=== PATIENT | male | born 1945 | race Hispanic/Latino ===

== ENCOUNTER 2022-10-23 10:57 | Emergency (ER) | payer OTHER ==
--- NOTE | 2022-10-23 11:50 | RAD REPORT ---
EXAM DESCRIPTION: RAD - Chest Single View - 10/23/2022 11:43 am CLINICAL HISTORY: Cough;COPD Chest pain. COMPARISON: No comparisons FINDINGS: Portable technique limits examination quality. Emphysema is seen with hazy opacities in the left lung base, moderate in size. Small left pleural eff usion. The heart is normal in size. No displaced fractures.Aortic atherosclerosis. IMPRESSION: Moderate left lung base infiltrate/pneumonia pattern.
--- NOTE | 2022-10-23 11:52 | ER ---
Nurse's Notes [facility] Name: Luis Kwon Age: 76 yrs Sex: Male : 1945 Arrival Date: 10/23/2022 Time: 10:57 Bed 2 Private MD: Diagnosis: Influenza due to other identified influenza virus with other respiratory manifestations-FLU B;COPD/ Chronic obstructive pulmonary disease with (acute) exacerbation;Hypoxemia;Pneumonia due to other specified bacteria-LEFT BASE;Anemia, unspecified;UTI/ Urinary tract infection, site not specified Presentation: 10/23 11:05 Chief complaint: EMS states: Pt was recently discharged from [facility] for [facility] and was vg1 toned out for SOB/difficulty breathing, "sating at high 80's" placed pt on Nonrebreather. Pt also had a recent ronda infection and currently has a suprapubic catheter. Coronavirus screen: Vaccine status: Patient reports receiving the 2nd dose of the covid vaccine. Client denies travel out of the [place] in the last 14 days. Ebola Screen: Patient negative for fever greater than or equal to 101.5 degrees Fahrenheit, and additional compatible Ebola Virus Disease symptoms Patient denies exposure to infectious person. Patient denies travel to an Ebola-affected area in the 21 days before illness onset. Initial Sepsis Screen: Does the patient meet any 2 criteria? RR > 20 per min. Does the patient have a suspected source of infection?. Risk Assessment: Do you want to hurt yourself or someone else? Patient reports no desire to harm self or others. Onset of symptoms was October 23, 2022. 11:05 Method Of Arrival: EMS: [facility] vg1 11:05 Acuity: JEREMY 2 vg1 11:05 Care prior to arrival: Glucose check: 190 Oxygen administered. via a non-rebreather vg1 mask. Triage Assessment: 11:09 General: Appears in no apparent distress. uncomfortable, Behavior is calm, cooperative. vg1 Pain: Denies pain. EENT: No signs and/or symptoms were reported regarding the EENT system. Neuro: Level of Consciousness is awake, alert, obeys commands, Oriented to person, place, time, situation. Cardiovascular: Patient's skin is warm and dry. Respiratory: Reports shortness of breath at rest on exertion cough that is non-productive, Breath sounds are diminished bilaterally. Onset: The symptoms/episode began/occurred , the patient has moderate shortness of breath. GI: No signs and/or symptoms were reported involving the gastrointestinal system. : suprapubic catheter in place Urine is blood tinged. Derm: Skin is pink, warm \\T\\ dry. Musculoskeletal: Circulation, motion, and sensation intact. Historical: - Allergies: 11:09 No Known Allergies; vg1 - Home Meds: 13:37 Wixela Inhub inhalation [Active]; Fluconazole Oral [Active]; Lisinopril Oral [Active]; vg1 Amiodarone Oral [Active]; atorvastatin oral [Active]; levothyroxine oral [Active]; Omeprazole Oral [Active]; Vitamin D Oral [Active]; acetaminophen 325 mg Oral capsule [Active]; Levofloxacin Oral [Active]; Metoprolol Tartrate Oral [Active]; apixaban 5 mg oral tablet [Active]; - PMHx: 11:09 Congestive heart failure; Hypertensive disorder; Prostate Cancer; vg1 13:41 Chronic obstructive lung disease; vg1 - Immunization history:: Client reports receiving the 2nd dose of the Covid vaccine. - Social history:: Smoking status: Patient denies any tobacco usage or history of. Screenin:[address] [facility] ED Fall Risk Assessment (Adult) History of falling in the last 3 months, vg1 including since admission No falls in past 3 months (0 pts). Abuse screen: Denies threats or abuse. Denies injuries from another. Nutritional screening: No deficits noted. Tuberculosis screening: No symptoms or risk factors identified. Assessment: 11:11 Reassessment: SEE TRIAGE. vg1 11:12 Respiratory: Airway is patent Respiratory effort is labored, pursed lip. vg1 13:42 Reassessment: Patient appears in no apparent distress at this time. Patient and/or vg1 family updated on plan of care and expected duration. Pain level reassessed. Patient is alert, oriented x 3, equal unlabored respirations, skin warm/dry/pink. Patient states feeling better. 14:48 Reassessment: Patient appears in no apparent distress at this time. No changes from vg1 previously documented assessment. Patient and/or family updated on plan of care and expected duration. Pain level reassessed. Patient is alert, oriented x 3, equal unlabored respirations, skin warm/dry/pink. 15:30 Reassessment: Patient appears in no apparent distress at this time. Patient and/or vg1 family updated on plan of care and expected duration. Pain level reassessed. Patient is alert, oriented x 3, equal unlabored respirations, skin warm/dry/pink. 16:38 Reassessment: Patient appears in no apparent distress at this time. No changes from vg1 previously documented assessment. Patient and/or family updated on plan of care and expected duration. Pain level reassessed. Patient is alert, oriented x 3, equal unlabored respirations, skin warm/dry/pink. 16:58 Reassessment: Report given to IVETH RENEE at the [facility]. vg1 17:22 Reassessment: Report given to [facility]. vg1 Vital Signs: 11:05 BP 178 / 86; Pulse 86; Resp 26; Temp 98.6(O); Pulse Ox 100% on Non-rebreather mask; vg1 Weight 66.22 kg; Height 5 ft. 6 in. ; Pain 0/10; 11:11 BP 149 / 83; Pulse 60; Resp 20; Pulse Ox 92% on 4 lpm NC; vg1 12:00 BP 154 / 74; Pulse 60; Resp 15; Pulse Ox 100% on Non-rebreather mask; vg1 13:00 BP 138 / 73; Pulse 53; Resp 15; Pulse Ox 100% on Non-rebreather mask; vg1 13:30 BP 148 / 72; Pulse 68; Resp 16; Pulse Ox 92% on 4 lpm NC; vg1 14:30 BP 134 / 66; Pulse 67; Resp 22; Pulse Ox 93% on 4 lpm NC; vg1 15:30 BP 138 / 76; Pulse 62; Resp 22; Pulse Ox 90% on 4 lpm NC; vg1 16:38 BP 141 / 80; Pulse 60; Resp 16; Pulse Ox 100% on Nebulizer Mask; vg1 11:05 Body Mass Index 23.56 (66.22 kg, 167.64 cm) vg1 11:05 Pain Scale: Adult vg1 ED Course: 11:01 Patient arrived in ED. ph 11:05 Antonia Hernandez, IVETH is Primary Nurse. vg1 11:09 Triage completed. vg1 11:09 Olivier Ojeda MD is Attending Physician. [facility] 11:09 Arm band placed on. vg1 11:12 Patient has correct armband on for positive identification. Placed in gown. Bed in low vg1 position. Call light in reach. Side rails up X2. Client placed on continuous cardiac and pulse oximetry monitoring. NIBP monitoring applied. 11:44 XRAY Chest (1 view) In Process Unspecified. EDMS 11:45 Initial lab(s) drawn, by me, sent to lab. First set of blood cultures drawn by me, Flu mm9 and/or RSV swab sent to lab. Strep swab sent to lab. Inserted saline lock: 20 gauge in right antecubital area, using aseptic technique. 11:51 Lactate w/ 2H reflex if indic. Sent. mm9 11:51 COVID-19 SARS RT PCR Sent. mm9 11:51 Basic Metabolic Panel Sent. mm9 11:51 CBC with Diff Sent. mm9 11:51 LFT's Sent. mm9 11:51 Magnesium Sent. mm9 11:51 NT PRO-BNP Sent. mm9 11:52 PT-INR Sent. mm9 11:52 Troponin HS Sent. mm9 11:53 Warm blanket given. Pillow given. logistics coordinator on. Pulse ox on. NIBP on. mm9 12:15 Blood Culture Adult (2) Sent. mm9 12:20 attempted to initiate a transfer with the [facility] transfer center/ the coordinator is austin currently busy with another transfer and will have to call me back/. 13:00 initiated a transfer with the [facility] transfer center at the request of the patient. austin 16:[address] Esqueda the Emergency room doctor on at the [facility] with Dr. Ojeda for eb patient transfer consultation. 16:14 administrative approval given by Ramonita Garsia/ patient has been accepted to [facility] ER/ Dr. austin Esqueda has accepted the patient in transfer/ report to be called to [phone]. 17:00 Provided Education on: Transfer Consent. jl7 Administered Medications: 12:09 Drug: NS 0.9% IV 1000 ml Route: IV; Rate: 125 ml/hr; Site: right antecubital; vg1 17:56 Follow up: IV Status: Infusion continued upon transfer vg1 12:18 Drug: predniSONE PO 40 mg Route: PO; vg1 13:49 Follow up: Response: No adverse reaction jl7 14:06 Follow up: Response: No adverse reaction; Marked relief of symptoms vg1 12:18 Drug: Oseltamivir PO 75 mg Route: PO; vg1 13:49 Follow up: Response: No adverse reaction jl7 14:06 Follow up: Response: No adverse reaction vg1 12:19 Drug: MethylPrednisoLONE IVP 125 mg Route: IVP; Site: right antecubital; vg1 13:49 Follow up: Response: No adverse reaction jl7 12:22 Drug: Famotidine IVP 20 mg Route: IVP; Site: right antecubital; vg1 13:49 Follow up: Response: No adverse reaction jl7 14:06 Follow up: Response: No adverse reaction; Marked relief of symptoms vg1 12:27 Drug: Levalbuterol Inhalation 3.75 mg Route: Inhalation; vg1 14:06 Follow up: Response: No adverse reaction; Marked relief of symptoms vg1 12:27 Drug: Ipratropium Inhalation Aerosol 0.5 mg Route: Inhalation; vg1 14:06 Follow up: Response: No adverse reaction; Marked relief of symptoms vg1 13:45 Drug: Rocephin IV 1 grams Route: IV; Rate: per protocol; Site: right antecubital; vg1 14:06 Follow up: IV Status: Completed infusion vg1 13:49 Drug: Levalbuterol Inhalation 2.5 mg Route: Inhalation; jl7 16:37 Follow up: Response: No adverse reaction; No change in condition vg1 14:05 Drug: Zithromax IVPB 500 mg Route: IVPB; Infused Over: 1 hrs; Site: right antecubital; vg1 15:09 Follow up: Response: No adverse reaction; IV Status: Completed infusion ph 16:30 Drug: Levalbuterol Inhalation 1.25 mg Route: Inhalation; vg1 16:32 Drug: levofloxacin IVPB 500 mg Volume: 100 ml; Route: IVPB; Infused Over: 60 mins; vg1 Site: right antecubital; 17:55 Follow up: IV Status: Infusion continued upon admission vg1 Medication: 11:12 VIS not applicable for this client. vg1 Outcome: 11:51 ER care complete, transfer ordered by MD. conteh 17:45 Patient left the ED. ph Signatures: Dispatcher [employer] EDOlivier Pope MD MD cha Hall, Patricia RN RN ph Galo Corey RN RN jl7 Gale Rivera Victoria RN RN vg1 Carey Zuleta mm9 Corrections: (The following items were deleted from the chart) 11:09 PMHx: Diabetes mellitus; vg1 vg1
--- NOTE | 2022-10-23 11:52 | EDPHYS ---
Physician Documentation [facility] Name: Luis Kwon Age: 76 yrs Sex: Male : 1945 Arrival Date: 10/23/2022 Time: 10:57 Bed 2 Private MD: ED Physician Olivier Ojeda HPI: 10/23 11:32 This 76 yrs old Male presents to ER via EMS with complaints of Shortness Of yady Breath. 11:32 The patient has shortness of breath at rest, with light activity. Onset: The yady symptoms/episode began/occurred 2 day(s) ago. Duration: The symptoms are continuous, and are steadily getting worse. The patient's shortness of breath is aggravated by coughing, supine position. The patient's shortness of breath has no apparent modifying factors. Associated signs and symptoms: Pertinent positives: non-productive cough. Severity of symptoms: At their worst the symptoms were moderate in the emergency department the symptoms are unchanged. The patient has experienced similar episodes in the past, multiple times. Historical: - Allergies: 11:09 No Known Allergies; vg1 - Home Meds: 13:37 Wixela Inhub inhalation [Active]; Fluconazole Oral [Active]; Lisinopril Oral [Active]; vg1 Amiodarone Oral [Active]; atorvastatin oral [Active]; levothyroxine oral [Active]; Omeprazole Oral [Active]; Vitamin D Oral [Active]; acetaminophen 325 mg Oral capsule [Active]; Levofloxacin Oral [Active]; Metoprolol Tartrate Oral [Active]; apixaban 5 mg oral tablet [Active]; - PMHx: 11:09 Congestive heart failure; Hypertensive disorder; Prostate Cancer; vg1 13:41 Chronic obstructive lung disease; vg1 - Immunization history:: Client reports receiving the 2nd dose of the Covid vaccine. - Social history:: Smoking status: Patient denies any tobacco usage or history of. ROS: 11:43 Constitutional: Negative for fever, chills, and weight loss, Eyes: Negative for injury, yady pain, redness, and discharge, ENT: Negative for injury, pain, and discharge, Neck: Negative for injury, pain, and swelling, Cardiovascular: Negative for chest pain, palpitations, and edema, Abdomen/GI: Negative for abdominal pain, nausea, vomiting, diarrhea, and constipation, Back: Negative for injury and pain, : Negative for injury, bleeding, discharge, and swelling, MS/Extremity: Negative for injury and deformity, Skin: Negative for injury, rash, and discoloration, Neuro: Negative for headache, weakness, numbness, tingling, and seizure, Psych: Negative for depression, anxiety, suicide ideation, homicidal ideation, and hallucinations, Allergy/Immunology: Negative for hives, rash, and allergies, Endocrine: Negative for neck swelling, polydipsia, polyuria, polyphagia, and marked weight changes, Hematologic/Lymphatic: Negative for swollen nodes, abnormal bleeding, and unusual bruising. 11:43 Respiratory: Positive for cough, shortness of breath, wheezing, inspiratory, expiratory. Exam: 11:43 Constitutional: This is a well developed, well nourished patient who is awake, alert, yady and in no acute distress. Head/Face: Normocephalic, atraumatic. Eyes: Pupils equal round and reactive to light, extra-ocular motions intact. Lids and lashes normal. Conjunctiva and sclera are non-icteric and not injected. Cornea within normal limits. Periorbital areas with no swelling, redness, or edema. ENT: Nares patent. No nasal discharge, no septal abnormalities noted. Tympanic membranes are normal and external auditory canals are clear. Oropharynx with no redness, swelling, or masses, exudates, or evidence of obstruction, uvula midline. Mucous membranes moist. Neck: Trachea midline, no thyromegaly or masses palpated, and no cervical lymphadenopathy. Supple, full range of motion without nuchal rigidity, or vertebral point tenderness. No Meningismus. Chest/axilla: Normal chest wall appearance and motion. Nontender with no deformity. No lesions are appreciated. Cardiovascular: Regular rate and rhythm with a normal S1 and S2. No gallops, murmurs, or rubs. Normal PMI, no JVD. No pulse deficits. Abdomen/GI: Soft, non-tender, with normal bowel sounds. No distension or tympany. No guarding or rebound. No evidence of tenderness throughout. Back: No spinal tenderness. No costovertebral tenderness. Full range of motion. Male : Normal genitalia with no discharge or lesions. Skin: Warm, dry with normal turgor. Normal color with no rashes, no lesions, and no evidence of cellulitis. MS/ Extremity: Pulses equal, no cyanosis. Neurovascular intact. Full, normal range of motion. Neuro: Awake and alert, GCS 15, oriented to person, place, time, and situation. Cranial nerves II-XII grossly intact. Motor strength 5/5 in all extremities. Sensory grossly intact. Cerebellar exam normal. Normal gait. Psych: Awake, alert, with orientation to person, place and time. Behavior, mood, and affect are within normal limits. 11:43 Respiratory: mild respiratory distress is noted, moderate respiratory distress is noted, Respirations: labored breathing, that is mild, Breath sounds: decreased breath sounds, that are mild, rhonchi, that are mild, stridor, is not appreciated, + upper airway congestion. Respiratory rate: 22 11:43 Musculoskeletal/extremity: DVT Exam: No signs of deep vein thrombosis. no pain, no swelling, no tenderness, negative Homans' sign noted on exam, no appreciated bluish discoloration, no erythema, no increased warmth. 12:45 ECG was reviewed by the Attending Physician. yady Vital Signs: 11:05 BP 178 / 86; Pulse 86; Resp 26; Temp 98.6(O); Pulse Ox 100% on Non-rebreather mask; vg1 Weight 66.22 kg; Height 5 ft. 6 in. ; Pain 0/10; 11:11 BP 149 / 83; Pulse 60; Resp 20; Pulse Ox 92% on 4 lpm NC; vg1 12:00 BP 154 / 74; Pulse 60; Resp 15; Pulse Ox 100% on Non-rebreather mask; vg1 13:00 BP 138 / 73; Pulse 53; Resp 15; Pulse Ox 100% on Non-rebreather mask; vg1 13:30 BP 148 / 72; Pulse 68; Resp 16; Pulse Ox 92% on 4 lpm NC; vg1 14:30 BP 134 / 66; Pulse 67; Resp 22; Pulse Ox 93% on 4 lpm NC; vg1 15:30 BP 138 / 76; Pulse 62; Resp 22; Pulse Ox 90% on 4 lpm NC; vg1 16:38 BP 141 / 80; Pulse 60; Resp 16; Pulse Ox 100% on Nebulizer Mask; vg1 11:05 Body Mass Index 23.56 (66.22 kg, 167.64 cm) 1 11:05 Pain Scale: Adult vg1 MDM: 11:10 Patient medically screened. [facility] 11:44 Differential diagnosis: Anemia asthma, Bronchitis CHF exacerbation, Chronic Obstructive yady Pulmonary Disease obstructed airway, tracheal injury, bronchitis, flu, pneumonia, Pneumothorax pulmonary edema, Pulmonary Embolism reactive airway disease, Sepsis Unstable Angina. Antibiotic administration: Rocephin and Zithromax given. Immunization status: Pneumococcal vaccine: within last 5 years. Influenza vaccine: within last 5 years. Data reviewed: vital signs, nurses notes, EMS record, lab test result(s), EKG, radiologic studies, plain films. Consideration of Admission/Observation Escalation of care including admission/observation considered. I considered the following discharge prescriptions or medication management in the emergency department Medications were administered in the Emergency Department. See MAR. Test considered but Not performed: CT: CT CHEST RO PE. Historians other than the Patient: Spouse/Significant Other: . Care significantly affected by the following chronic conditions: Hypertension, Congestive Heart Failure, Cancer. Counseling: I had a detailed discussion with the patient and/or guardian regarding: the historical points, exam findings, and any diagnostic results supporting the discharge/admit diagnosis, the presence of at least one elevated blood pressure reading (>120/80) during this emergency department visit, lab results, radiology results, the need to transfer to another facility, for higher level of care, [facility] does not immediately have the required specialist, [place] PATIENT. 10/23 11:15 Order name: Basic Metabolic Panel; Complete Time: 13:04 [facility] 10/23 11:15 Order name: CBC with Diff; Complete Time: 13:04 [facility] 10/23 11:15 Order name: LFT's; Complete Time: 13:04 10/23 11:15 Order name: Magnesium; Complete Time: 13:04 10/23 11:15 Order name: NT PRO-BNP; Complete Time: 13:04 yady 10/23 11:15 Order name: PT-INR; Complete Time: 13:04 10/23 11:15 Order name: Troponin HS; Complete Time: 13:04 [facility] 10/23 11:15 Order name: Blood Culture Adult (2) [facility] 10/23 11:15 Order name: Flu; Complete Time: 13:04 [facility] 10/23 11:15 Order name: COVID-19 SARS RT PCR; Complete Time: 13:04 [facility] 10/23 11:15 Order name: Lactate w/ 2H reflex if indic.; Complete Time: 13:04 [facility] 10/23 11:15 Order name: Urinalysis w/ reflexes; Complete Time: 16:13 [facility] 10/23 11:20 Order name: ABG; Complete Time: 13:04 [facility] 10/23 13:24 Order name: Urine Culture EDPR 10/23 11:15 Order name: XRAY Chest (1 view); Complete Time: 13:04 [facility] 10/23 11:15 Order name: EKG; Complete Time: 11:16 [facility] 10/23 11:15 Order name: Cardiac monitoring; Complete Time: 11:51 [facility] 10/23 11:15 Order name: EKG - Nurse/Tech; Complete Time: 12:43 [facility] 10/23 11:15 Order name: IV Saline Lock; Complete Time: 11:51 [facility] 10/23 11:15 Order name: Labs collected and sent; Complete Time: 11:51 [facility] 10/23 11:15 Order name: O2 Per Protocol; Complete Time: 11:42 [facility] 10/23 11:15 Order name: O2 Sat Monitoring; Complete Time: 11:42 [facility] EC:45 Rate is 55 beats/min. Rhythm is regular. QRS [place] is Normal. [place] interval is normal. QRS yady interval is normal. QT interval is normal. No Q waves. T waves are Normal. No ST changes noted. Clinical impression: Sinus bradycardia and No evidence of ischemia. Interpreted by me. Reviewed by me. Administered Medications: 12:09 Drug: NS 0.9% IV 1000 ml Route: IV; Rate: 125 ml/hr; Site: right antecubital; 1 17:56 Follow up: IV Status: Infusion continued upon transfer vg1 12:18 Drug: predniSONE PO 40 mg Route: PO; vg1 13:49 Follow up: Response: No adverse reaction jl7 14:06 Follow up: Response: No adverse reaction; Marked relief of symptoms vg1 12:18 Drug: Oseltamivir PO 75 mg Route: PO; vg1 13:49 Follow up: Response: No adverse reaction jl7 14:06 Follow up: Response: No adverse reaction vg1 12:19 Drug: MethylPrednisoLONE IVP 125 mg Route: IVP; Site: right antecubital; vg1 13:49 Follow up: Response: No adverse reaction jl7 12:22 Drug: Famotidine IVP 20 mg Route: IVP; Site: right antecubital; vg1 13:49 Follow up: Response: No adverse reaction jl7 14:06 Follow up: Response: No adverse reaction; Marked relief of symptoms vg1 12:27 Drug: Levalbuterol Inhalation 3.75 mg Route: Inhalation; vg1 14:06 Follow up: Response: No adverse reaction; Marked relief of symptoms vg1 12:27 Drug: Ipratropium Inhalation Aerosol 0.5 mg Route: Inhalation; vg1 14:06 Follow up: Response: No adverse reaction; Marked relief of symptoms vg1 13:45 Drug: Rocephin IV 1 grams Route: IV; Rate: per protocol; Site: right antecubital; vg1 14:06 Follow up: IV Status: Completed infusion vg1 13:49 Drug: Levalbuterol Inhalation 2.5 mg Route: Inhalation; jl7 16:37 Follow up: Response: No adverse reaction; No change in condition vg1 14:05 Drug: Zithromax IVPB 500 mg Route: IVPB; Infused Over: 1 hrs; Site: right antecubital; vg1 15:09 Follow up: Response: No adverse reaction; IV Status: Completed infusion ph 16:30 Drug: Levalbuterol Inhalation 1.25 mg Route: Inhalation; vg1 16:32 Drug: levofloxacin IVPB 500 mg Volume: 100 ml; Route: IVPB; Infused Over: 60 mins; vg1 Site: right antecubital; 17:55 Follow up: IV Status: Infusion continued upon admission vg1 Disposition Summary: 10/23/22 11:51 Transfer Ordered Transfer [facility] yady Reason: Higher level of care yady Condition: Fair yady Problem: new yady Symptoms: have improved yady Accepting Physician: TO [place](10/23/22 17:45) ph Diagnosis - Influenza due to other identified influenza virus with other respiratory yady manifestations - FLU B - COPD/ Chronic obstructive pulmonary disease with (acute) exacerbation yady - Hypoxemia yady - Pneumonia due to other specified bacteria - LEFT BASE yady - Anemia, unspecified yady - UTI/ Urinary tract infection, site not specified yady Forms: - Medication Reconciliation Form yady - SBAR form yady Signatures: Dispatcher [employer] Olivier Wynn MD MD cha Hall, Patricia, RN RN ph Leal, Jahala, RN RN jl7 Antonia Hernandez RN RN vg1 Corrections: (The following items were deleted from the chart) 11: 11:09 PMHx: Diabetes mellitus; vg1 vg1 13:05 11:51 [facility]ady 13:06 13:05 [facility] y[facility] yady 16:34 13:06 [facility] y[facility] yady 17:45 16:34 [facility] y[facility] ph
[2022-10-23 12:00] LABS: Hematocrit 33.7 % (39.6-49.0); MCV 87.2 fL (80-100); MPV 8.7 fL (7.6-11.3); RBC Red Blood Cell Count 3.87 M/uL (4.33-5.43)
[2022-10-23 12:05] LABS: Protime INR 1.64
[2022-10-23] MEDS ORDERED: predniSONE 20 MG TAB ONE ×2 (12:11→12:41)
[2022-10-23] MEDS ORDERED: METHYLPREDNISOLONE 125 MG INJ ONE (12:11)
[2022-10-23] MEDS ORDERED: OSELTAMIVIR 75 MG CAP PO ONE (12:11)
[2022-10-23 12:12] LABS: Arterial Blood Carboxyhemoglob 1.8 % (0-1.5); Blood Gas Oxyhemoglobin 95.5 % (94-97); Blood O2 Saturation 98.4 % (92-98.5)
[2022-10-23] MEDS ORDERED: CEFTRIAXONE 1000 MG/VIAL ONE (12:12)
[2022-10-23] MEDS ORDERED: AZITHROMYCIN 500 MG INJ IVPB ONE (12:12)
[2022-10-23] MEDS ORDERED: IPRATROPIUM BROM 0.5MG/2.5ML ONE (12:12)
[2022-10-23] MEDS ORDERED: LEVALBUTEROL 1.25 MG/3 ML NEB ONE ×3 (12:12→16:33)
[2022-10-23] MEDS ORDERED: NA CHLORIDE 0.9% 250 ML ONE (12:12)
[2022-10-23] MEDS ORDERED: NA CHLORIDE 0.9% 1,000 ML ONE (12:13)
[2022-10-23] MEDS ORDERED: FAMOTIDINE 20 MG/2 ML VIAL IV ONE (12:13)
[2022-10-23 12:20] LABS: Albumin 2.5 g/dL (3.4-5.0); Bilirubin Direct 0.1 mg/dL (0-0.2); Bilirubin Indirect, Calculated 0.3 mg/dL (0.2-0.8); Bilirubin Total 0.4 mg/dL (0.2-1.0); Magnesium 2.1 mg/dL (1.6-2.4); Potassium 4.2 mEq/L (3.5-5.1); Protein, Total 6.5 g/dL (6.4-8.2); Troponin High Sensitivity 9.2 pg/mL (<58.9)
[2022-10-23 13:21] LABS: Calcium Oxalate Crystals- Ur Few /HPF (None Seen); Specific Gravity 1.017 (1.005-1.030); Urine Bacteria <20 /HPF (<20); Urine Bilirubin NEGATIVE (Negative); Urine Blood 3+ (OVER) (Negative); Urine Clarity Extremely Turbid (Clear); Urine Color Light-Orange (Yellow); Urine Glucose NEGATIVE (Negative); Urine Mucus Slight /HPF (None Seen); Urine Protein 1+ (Negative); Urine RBC >50 /HPF (None Seen); Urine Urobilinogen Normal (Normal)
[2022-10-23] MEDS ORDERED: Levofloxacin500mg IV 500 MG/100 ML BAG IV ONE (16:33)
[2022-10-23 18:13] VITALS: TEMP 98.6
[2022-10-23 18:26] VITALS: BP 141/80; O2SAT 100
--- NOTE | 2022-10-25 11:48 | EKG ---
Test Date: 2022-10-23 Test Time: 12:40:29 Manager Contract: TONY MEASUREMENT RESULTS: Intervals: Rate: 55 [place]: 170 QRSD: 98 QT: 486 QTc: 464 Leonore: P: 53 [place]: 170 QRS: 92 T: 60 INTERPRETIVE STATEMENTS: Sinus bradycardia Otherwise normal ECG No previous ECG available for comparison Electronically Signed On 10-25-22 11:45:25 CDT by Johnny Lomas
== END 2022-10-23 17:45 ==
LOC: ER 10:57
DX: J10.1 Influenza due to other identified influenza virus with other respiratory manifestations (principal); J15.8 Pneumonia due to other specified bacteria; R09.02 Hypoxemia; J44.1 Chronic obstructive pulmonary disease with (acute) exacerbation; D64.9 Anemia, unspecified; N39.0 Urinary tract infection, site not specified; I50.9 Heart failure, unspecified; I10 Essential (primary) hypertension; Z20.822 Contact with and (suspected) exposure to COVID-19
CPT/HCPCS: 96365; 96367; 96361; 93005; 87040 ×2; 87088; 85025; 81001; 87086; 80048; 36415; 83735; 85610; 80076; 83605; 84484; 83880; 87635; 87804 ×2; 71045; 82805; 96375; 99285; 36600; J7512 ×2; J7614 ×3; J7644; J2930; J7050; J7030; J0696

== ENCOUNTER 2022-12-13 20:45 | Emergency (ER) | payer OTHER ==
--- NOTE | 2022-12-13 21:33 | RAD REPORT ---
EXAM DESCRIPTION: RAD - Chest Single View - 12/13/2022 9:25 pm CLINICAL HISTORY: SOB COMPARISON: <Comparisons> FINDINGS: Lines: None. Lungs: Similar mild basilar airspace disease compared with 10/23/2022. Pleural: No significant pleural effusions or pneumothorax. Cardiac: The heart size is within normal limits. Mediastinum: Within normal limits. Bones: No acute fractures. Other: None IMPRESSION: Similar aeration of the lungs compared 10/23/2022 with mild basilar opacities that could reflect atelectasis and/or pneumonia.
[2022-12-13 21:44] LABS: Hematocrit 29.3 % (39.6-49.0); Lymphocytes % 13.3 % (15.3-44.8); MCV 84.5 fL (80-100); MPV 9.2 fL (7.6-11.3); Platelets 221 thou/uL (152-406); RBC Red Blood Cell Count 3.46 M/uL (4.33-5.43)
[2022-12-13] MEDS ORDERED: ALBUTEROL 2.5 MG/3 ML NEB SOL ONE (21:51)
[2022-12-13] MEDS ORDERED: IPRATROPIUM BROM 0.5MG/2.5ML ONE (21:51)
[2022-12-13 21:58] LABS: Albumin 2.8 g/dL (3.4-5.0); Bilirubin Total 0.5 mg/dL (0.2-1.0); Magnesium 2.1 mg/dL (1.6-2.4); Protein, Total 7.1 g/dL (6.4-8.2); Troponin High Sensitivity 14.4 pg/mL (<58.9)
[2022-12-13 22:09] LABS: Calcium Oxalate Crystals- Ur Few /HPF (None Seen); Specific Gravity 1.025 (1.005-1.030); Urine Bacteria None Seen /HPF (<20); Urine Bilirubin NEGATIVE (Negative); Urine Blood 2+ (Negative); Urine Clarity Extremely Turbid (Clear); Urine Color Light-Orange (Yellow); Urine Glucose NEGATIVE (Negative); Urine Mucus Slight /HPF (None Seen); Urine Protein 3+ (Negative); Urine RBC >50 /HPF (None Seen); Urine Urobilinogen Normal (Normal)
[2022-12-13 22:23] LABS: Protime INR 1.08
[2022-12-13] MEDS ORDERED: FUROSEMIDE 20 MG/ 2ML VIAL ONE (22:44)
[2022-12-13] MEDS ORDERED: METHYLPREDNISOLONE 125 MG INJ ONE (22:44)
[2022-12-13 22:53] LABS: Arterial Blood Carboxyhemoglob 1.6 % (0-1.5); Blood Gas Oxyhemoglobin 96.2 % (94-97); Blood O2 Saturation 99.2 % (92-98.5)
[2022-12-13] MEDS ORDERED: FAMOTIDINE 20 MG/2 ML VIAL IV ONE (22:56)
[2022-12-13] MEDS ORDERED: ONDANSETRON 4 MG/2 ML VIAL ONE (22:56)
[2022-12-13] MEDS ORDERED: MORPHINE 4 MG/ML SYR ONE (22:56)
[2022-12-13] MEDS ORDERED: NA CHLORIDE 0.9% 1,000 ML ONE (22:57)
[2022-12-13] MEDS ORDERED: LORazepam 2 MG/ML VIAL ONE (23:35)
[2022-12-14] MEDS ORDERED: LORazepam 2 MG/ML VIAL ONE ×2 (00:01→02:58)
--- NOTE | 2022-12-14 00:28 | ER ---
Nurse's Notes [facility] Name: Luis Kwon Age: 77 yrs Sex: Male : 1945 Arrival Date: 12/13/2022 Time: 20:45 Bed 3 Private MD: Diagnosis: Altered mental status, unspecified;Respiratory failure, unspecified with hypercapnia;Pneumonia in diseases classified elsewhere Presentation: 12/13 20:50 Chief complaint: EMS states: Patient has been hallucinating and talking to himself vc1 since yesterday. When we arrived his oxygen was 75% on 3 L NC. We placed him on a non rebreather he came up to 98%. When we arrived here he was 94% on 4L nc. He just a whittaker catheter. Coronavirus screen: difficulty breathing, shortness of breath, Client presents with at least one sign or symptom that may indicate coronavirus-19. Ebola Screen: Patient negative for fever greater than or equal to 101.5 degrees Fahrenheit, and additional compatible Ebola Virus Disease symptoms Patient denies exposure to infectious person. Patient denies travel to an Ebola-affected area in the 21 days before illness onset. No symptoms or risks identified at this time. 20:50 Method Of Arrival: EMS: [facility] vc1 20:50 Initial Sepsis Screen: Does the patient meet any 2 criteria? RR > 20 per min. Altered vc1 Mental Status. Yes Does the patient have a suspected source of infection? Yes: Dysuria/Frequency/Urgency/UTI. Risk Assessment: Do you want to hurt yourself or someone else? Patient reports no desire to harm self or others. Onset of symptoms was December 12, 2022. 20:50 Acuity: JEREMY 3 vc1 20:50 Note suprapubic placed at IA on . whittaker catheter changed by of . vc1 Started on 500 mg levofloxacin on . Care prior to arrival: Glucose check: 179 Oxygen administered. via a non-rebreather mask. 20:50 Activity prior to arrival: confused. vc1 Triage Assessment: 20:50 General: Appears in no apparent distress. uncomfortable, Behavior is restless, vc1 uncooperative. Pain: Unable to use pain scale. Patient is disoriented. EENT: No deficits noted. No signs and/or symptoms were reported regarding the EENT system. Neuro: Level of Consciousness is awake, alert, obeys commands, Oriented to person, place, time, situation, Appropriate for age. Cardiovascular: No deficits noted. Respiratory: Airway is patent Respiratory effort is labored, Respiratory pattern is regular, tachypnea pt oxygen saturation 72% on 4L, placed on non rebreather the patient has moderate shortness of breath. GI: No deficits noted. No signs and/or symptoms were reported involving the gastrointestinal system. : No deficits noted. No signs and/or symptoms were reported regarding the genitourinary system. Derm: No deficits noted. No signs and/or symptoms reported regarding the dermatologic system. Musculoskeletal: No deficits noted. No signs and/or symptoms reported regarding the musculoskeletal system. Historical: - Allergies: 20:50 No Known Allergies; vc1 - PMHx: 20:50 Chronic obstructive lung disease; Congestive heart failure; Hypertensive disorder; vc1 Prostate Cancer; - PSHx: 20:50 supra pubic catheter; vc1 - Immunization history:: Client reports receiving the 2nd dose of the Covid vaccine, Moderna. - Social history:: Smoking status: Patient/guardian denies using tobacco, Stopped _ months ago 2. Screenin:50 [facility] ED Fall Risk Assessment (Adult) History of falling in the last 3 months, vc1 including since admission No falls in past 3 months (0 pts) Confusion or Disorientation Yes (5 pts) Intoxicated or Sedated No (0 pts) Impaired Gait No (0 pts) Mobility Assist Device Used No (0 pt) Altered Elimination Yes (1 pt) Score/Fall Risk Level 3 or more points = High Risk Oriented to surroundings, Maintained a safe environment, Educated pt \T\ family on fall prevention, incl call for assistance when getting out of bed. Abuse screen: Denies threats or abuse. Nutritional screening: No deficits noted. Tuberculosis screening: No symptoms or risk factors identified. Assessment: 21:00 Respiratory: Patient placed on BiPAP: Inspiratory Pressure: 14 Expiratory (EPAP) vc1 Pressure: 6 FiO2%: 60 Respiratory Rate: 20. 22:00 Reassessment: No changes from previously documented assessment. Patient and/or family vc1 updated on plan of care and expected duration. Pain level reassessed. 23:00 Reassessment: No changes from previously documented assessment. Patient and/or family vc1 updated on plan of care and expected duration. Pain level reassessed. 12/14 00:29 Reassessment: No changes from previously documented assessment. Patient and/or family vc1 updated on plan of care and expected duration. Pain level reassessed. General: Behavior is restless, uncooperative. Neuro: Level of Consciousness is awake, Oriented to person. 01:06 Reassessment: PT ATTEMPTING TO EXIT BED AND REMOVE PIV AND MONITOR. PT NOT RESPONDING bp TO VERBAL DIRECTION. RESTRAINTS PLACED FOR PT SAFETY. PT UNABLE TO ARTICULATE RESTRAINT RELEASE CRITERIA. 01:47 Reassessment: Patient appears in no apparent distress at this time. No changes from vc1 previously documented assessment. Vital Signs: 12/13 20:50 BP 148 / 78; Pulse 76; Resp 22; Temp 99.1; Pulse Ox 72% on 4 lpm NC; vc1 22:00 BP 123 / 84; Pulse 69; Resp 20; Pulse Ox 100% on 60 lpm BiPAP; vc1 23:00 BP 141 / 75; Pulse 71; Resp 23; Pulse Ox 100% on 60 lpm BiPAP; vc1 12/14 00:00 BP 141 / 82; Pulse 79; Resp 22; Pulse Ox 100% on 60 lpm BiPAP; vc1 01:00 BP 121 / 69; Pulse 67; Resp 20; Pulse Ox 100% ; vc1 01:30 BP 116 / 71; Pulse 63; Resp 20; Pulse Ox 100% ; vc1 ED Course: 12/13 20:48 Patient arrived in ED. rv1 20:50 Han Eaton, RN is Primary Nurse. bp 20:50 Arm band placed on left wrist. vc1 20:50 Patient has correct armband on for positive identification. Bed in low position. Call vc1 light in reach. Client placed on continuous cardiac and pulse oximetry monitoring. NIBP monitoring applied. 20:50 Oxygen administration via non-rebreather mask \T\ 15L/min Response to oxygen therapy: vc1 symptoms improved. 20:52 Olivier Moncada PA is PHCP. cp 20:52 Olivier Ojeda MD is Attending Physician. cp 20:57 Inserted saline lock: 20 gauge in right forearm, using aseptic technique. Blood vc1 collected. 21:10 Inserted saline lock: 20 gauge in left antecubital area, using aseptic technique. Blood vc1 collected. 21:27 Chest Single View XRAY In Process Unspecified. EDMS 21:36 Triage completed. vc1 22:51 CT Head Brain wo Cont In Process Unspecified. EDMS 22:51 CT Chest, Abdomen, Pelvis - W/Contrast In Process Unspecified. EDMS 12/14 00:28 Initiated transfer with [facility] at [facility]. rv1 01:37 Pt accepted to [facility] by Dr. Sheldon. rv1 02:35 No provider procedures requiring assistance completed. Patient admitted, IV remains in vc1 place. Administered Medications: 12/13 21:43 Drug: DuoNeb Nebulize (2.5 mg - 0.5 mg) 3 ml Route: Nebulizer; bp 22:47 Drug: MethylPrednisoLONE IVP 125 mg Route: IVP; Site: left forearm; vc1 22:47 Drug: Furosemide IVP 20 mg Route: IVP; Site: left forearm; vc1 23:30 Drug: Ativan IVP 0.5 mg Route: IVP; Site: right antecubital; vc1 12/14 00:10 Drug: Ativan IVP 0.5 mg Route: IVP; Site: left forearm; vc1 01:09 Drug: NS 0.9% IV 500 ml Route: IV; Rate: 500 ml/hr; Site: right antecubital; vc1 01:09 Drug: Piperacillin-Tazobactam IVPB 3.375 grams Route: IVPB; Infused Over: 60 mins; vc1 Site: left forearm; 02:50 Drug: Ativan IVP 1 mg Route: IVP; Site: right antecubital; vc1 Medication: 12/13 20:50 VIS not applicable for this client. vc1 Outcome: 12/14 00:27 ER care complete, transfer ordered by . [email or web address] 02:35 Condition: good vc1 02:35 Instructed on the need for admit. 03:17 Transferred by ground EMS to [facility] Transfer form completed. vc1 X-rays sent w/ patient. 03:17 Patient left the ED. vc1 Signatures: Dispatcher [employer] EDMS Olivier Moncada PA PA cp Peltier, Brian RN RN bp Emerita Monge RN RN vc1 Izabel Maddox rv1 Corrections: (The following items were deleted from the chart) 12/13 21:41 21:40 Arm band placed on left wrist. vc1 vc1 21:41 General: Appears in no apparent distress. uncomfortable, Behavior is restless, vc1 uncooperative, vc1 21:41 Pain: Unable to use pain scale. Patient is disoriented. vc1 vc1 21:41 EENT: No deficits noted. No signs and/or symptoms were reported regarding the vc1 EENT system. vc1 21:41 Neuro: Level of Consciousness is awake, alert, obeys commands, Oriented to vc1 person, place, time, situation, Appropriate for age vc1 21:41 Respiratory: Airway is patent Respiratory effort is labored, Respiratory pattern vc1 is regular, tachypnea pt oxygen saturation 72% on 4L, placed on non rebreather the patient has moderate shortness of breath vc1 21:41 Cardiovascular: No deficits noted. vc1 vc1 21:41 GI: No deficits noted. No signs and/or symptoms were reported involving the vc1 gastrointestinal system. vc1 21:41 : No deficits noted. No signs and/or symptoms were reported regarding the vc1 genitourinary system. vc1 21:41 Derm: No deficits noted. No signs and/or symptoms reported regarding the vc1 dermatologic system. vc1 21:41 Musculoskeletal: No deficits noted. No signs and/or symptoms reported regarding vc1 the musculoskeletal system. vc1 12/15 99:12/13 22:00 BP 123 / 84; Pulse 69bpm; Resp 20bpm; Pulse Ox 100%; vc1 vc1 12/15 99:12/13 23:00 BP 141 / 75; Pulse 71bpm; Resp 23bpm; Pulse Ox 100%; vc1 vc1
--- NOTE | 2022-12-14 00:28 | EDPHYS ---
Physician Documentation [facility] Name: Luis Kwon Age: 77 yrs Sex: Male : 1945 Arrival Date: 12/13/2022 Time: 20:45 Bed 3 Private MD: ED Physician Olivier Ojeda HPI: 12/13 21:10 This 77 yrs old Male presents to ER via EMS with complaints of Altered Mental cp Status. 21:10 The patient has shortness of breath at rest. cp 21:10 The patient presents with confusion, decreased mental status. Onset: The cp symptoms/episode began/occurred yesterday. 21:10 Possible causes: sepsis, the patient has an indwelling Mendoza catheter, suprapubic cp catheter. 21:10 EMS reports called to home of patient for AMS. Oxygen sats in 70's on normal 3 liters cp NC. Historical: - Allergies: 20:50 No Known Allergies; vc1 - PMHx: 20:50 Chronic obstructive lung disease; Congestive heart failure; Hypertensive disorder; vc1 Prostate Cancer; - PSHx: 20:50 supra pubic catheter; vc1 - Immunization history:: Client reports receiving the 2nd dose of the Covid vaccine, Moderna. - Social history:: Smoking status: Patient/guardian denies using tobacco, Stopped _ months ago 2. ROS: 21:15 Constitutional: Negative for fever. cp 21:15 Respiratory: Positive for shortness of breath. cp 21:15 Unable to obtain ROS due to altered mental status. Exam: 21:25 Constitutional: The patient appears alert, awake, non-diaphoretic, non-toxic, well cp developed, well nourished, restless. 21:25 Head/Face: Normocephalic, atraumatic. cp 21:25 Eyes: Pupils: equal, round, and reactive to light and accomodation, Conjunctiva: normal, no exudate, no injection, Sclera: no appreciated abnormality, Lids and lashes: appear normal, bilaterally. 21:25 ENT: External ear(s): are unremarkable, Nose: is normal, Mouth: Lips: moist, Oral mucosa: pink and intact, moist, Posterior pharynx: is normal, airway is patent, no erythema, no exudate. 21:25 Neck: ROM/movement: is normal, is supple, no meningismus, no nuchal rigidity. 21:25 Chest/axilla: Inspection: normal. 21:25 Cardiovascular: Rate: normal, Rhythm: regular. 21:25 Respiratory: severe repiratory distress is noted, Respirations: labored breathing, that is severe, Breath sounds: decreased breath sounds, that are severe, throughout. 21:25 Abdomen/GI: Inspection: abdomen appears normal, Bowel sounds: active, all quadrants, Palpation: abdomen is soft and non-tender, in all quadrants. 21:25 Skin: cellulitis, is not appreciated, no rash present. 21:25 Neuro: Orientation: Not oriented to person, place, situation, Mentation: confused, unable to follow commands, Motor: moves all fours, general weakness with no focal deficits. 21:38 ECG was reviewed by the Attending Physician. cp Vital Signs: 20:50 BP 148 / 78; Pulse 76; Resp 22; Temp 99.1; Pulse Ox 72% on 4 lpm NC; vc1 22:00 BP 123 / 84; Pulse 69; Resp 20; Pulse Ox 100% on 60 lpm BiPAP; vc1 23:00 BP 141 / 75; Pulse 71; Resp 23; Pulse Ox 100% on 60 lpm BiPAP; vc1 12/14 00:00 BP 141 / 82; Pulse 79; Resp 22; Pulse Ox 100% on 60 lpm BiPAP; vc1 01:00 BP 121 / 69; Pulse 67; Resp 20; Pulse Ox 100% ; vc1 01:30 BP 116 / 71; Pulse 63; Resp 20; Pulse Ox 100% ; vc1 MDM: 12/13 20:52 Patient medically screened. cp 22:00 Differential Diagnosis: CVA, electrolyte abnormality, intracranial bleed, meningitis, cp pneumonia, seizure, sepsis, UTI, volume depletion. 12/14 00:30 Data reviewed: vital signs, nurses notes, lab test result(s), EKG, radiologic studies, cp CT scan, plain films. 00:45 ED course: patient accepted to [facility] with no doc to doc conversation. cp 00:45 Differential diagnosis: CHF exacerbation, Chronic Obstructive Pulmonary Disease cp pneumonia, pulmonary edema, Pulmonary Embolism Sepsis Unstable Angina. Historians other than the Patient: EMS: provides initial HPI. Spouse/Significant Other: assists with HPI. Daughter/Son: daughter assists with HPI. Care significantly affected by the following chronic conditions: Hypertension, Congestive Heart Failure, Chronic Obstructive Pulmonary Disease. 12/13 21:06 Order name: COVID-19 SARS RT PCR; Complete Time: 00:22 12/13 21:06 Order name: Influenza Screen (a \T\ B); Complete Time: 00:22 cp 12/13 21:06 Order name: Blood Culture Adult (2) cp 12/13 21:06 Order name: CBC with Diff; Complete Time: 22:05 12/13 22:05 Interpretation: Normal except: RBC 3.46; HGB 9.1; HCT 29.3; MCH 26.3; MCHC 31.2; RDW cp 16.8; LYM% 13.3. 12/13 21:06 Order name: CMP; Complete Time: 22:05 12/13 22:05 Interpretation: Normal except: CO2 38; AST 10; ALT 14; ALK 136; ALB 2.8; GLOB 4.3; A/G cp 0.7. 12/13 21:06 Order name: Lactate w/ 2H reflex if indic.; Complete Time: 22:05 12/13 22:47 Interpretation: Reviewed. 12/13 21:06 Order name: Protime (+inr); Complete Time: 22:46 12/13 21:06 Order name: Ptt, Activated; Complete Time: 22:46 12/13 21:06 Order name: Urinalysis w/ reflexes; Complete Time: 22:46 12/13 22:46 Interpretation: Normal except: UCLA Extremely Turbid; UBLD 2+; UPROT 3+; UESTR 500; cp UWBC >50; URBC >50; BYST Many. 12/13 21:06 Order name: Troponin HS; Complete Time: 22:05 12/13 22:47 Interpretation: Reviewed. 12/13 21:06 Order name: Magnesium; Complete Time: 22:05 12/13 21:06 Order name: BNP; Complete Time: 22:05 12/13 22:06 Interpretation: Abnormal: NT PRO-BNP 2312. 12/13 21:07 Order name: AMMONIA; Complete Time: 22:05 12/13 22:16 Order name: Urine Culture EDMS 12/13 22:46 Order name: ABG; Complete Time: 00:22 12/13 21:06 Order name: Chest Single View XRAY; Complete Time: 21:34 cp 12/13 21:34 Interpretation: Report review. 12/13 21:35 Order name: CT Head Brain wo Cont 12/13 21:35 Order name: CT Chest, Abdomen, Pelvis - W/Contrast 12/13 21:06 Order name: EKG; Complete Time: 21:08 cp 12/13 21:06 Order name: Accucheck; Complete Time: 21:36 12/13 21:06 Order name: Cardiac monitoring; Complete Time: 21:36 cp 12/13 21:06 Order name: EKG - Nurse/Tech; Complete Time: 21:36 cp 12/13 21:06 Order name: IV Saline Lock - Large Bore; Complete Time: 21:36 cp 12/13 21:06 Order name: Labs collected and sent; Complete Time: 21:36 cp 12/13 21:06 Order name: O2 Per Protocol; Complete Time: 21:36 cp 12/13 21:06 Order name: O2 Sat Monitoring; Complete Time: 21:36 12/13 21:06 Order name: Vital Signs; Complete Time: 21:36 cp 12/14 00:21 Order name: Restraint:Non-Violent; Complete Time: 00:51 cp EC/04 21:38 Rate is 71 beats/min. Rhythm is regular. LA interval is normal. QRS interval is normal. cp QT interval is normal. T waves are Inverted in lead aVR. Interpreted by me. Reviewed by me. Administered Medications: 21:43 Drug: DuoNeb Nebulize (2.5 mg - 0.5 mg) 3 ml Route: Nebulizer; bp 22:47 Drug: MethylPrednisoLONE IVP 125 mg Route: IVP; Site: left forearm; vc1 22:47 Drug: Furosemide IVP 20 mg Route: IVP; Site: left forearm; vc1 23:30 Drug: Ativan IVP 0.5 mg Route: IVP; Site: right antecubital; vc1 12/14 00:10 Drug: Ativan IVP 0.5 mg Route: IVP; Site: left forearm; vc1 01:09 Drug: NS 0.9% IV 500 ml Route: IV; Rate: 500 ml/hr; Site: right antecubital; vc1 01:09 Drug: Piperacillin-Tazobactam IVPB 3.375 grams Route: IVPB; Infused Over: 60 mins; vc1 Site: left forearm; 02:50 Drug: Ativan IVP 1 mg Route: IVP; Site: right antecubital; vc1 Disposition: 03:00 Critical Care:. cp Disposition Summary: 12/14/22 00:27 Transfer Ordered Transfer Location: [facility] cp Reason: Higher level of care cp Condition: Stable cp Problem: new cp Symptoms: have improved cp Accepting Physician: DR Sheldon(12/14/22 03:17) vc1 Diagnosis - Altered mental status, unspecified cp - Respiratory failure, unspecified with hypercapnia cp - Pneumonia in diseases classified elsewhere cp Forms: - Medication Reconciliation Form cp - SBAR form cp Critical care time excluding procedures: 03:00 Critical care time: Bedside Care: 7 minutes, Consultation: 20 minutes, Family cp Intervention: 10 minutes. Total time: 37 minutes Signatures: Dispatcher [employer] EDMS Olivier Moncada PA PA cp Peltier, Brian RN RN Emerita Howe RN RN vc1 Corrections: (The following items were deleted from the chart) 01:51 00:27 Doctor cp cp 03:17 01:51 DR Sheldon cp vc1
[2022-12-14] MEDS ORDERED: NA CHLORIDE 0.9% 500 ML ONE (01:12)
[2022-12-14] MEDS ORDERED: PIPERACIL/TAZO 3.375 GM VIAL IV ONE (01:13)
[2022-12-14] MEDS ORDERED: NA CHLORIDE 0.9% 100 ML ONE (01:13)
[2022-12-14 03:43] VITALS: TEMP 99.1
[2022-12-14 03:45] VITALS: O2SAT 100
[2022-12-14 03:49] VITALS: BP 116/71
--- NOTE | 2022-12-14 16:45 | EKG ---
Test Date: 2022-12-13 Test Time: 21:33:02 Web Systems Developer: BP MEASUREMENT RESULTS: Intervals: Rate: 71 SC: 136 QRSD: 92 QT: 410 QTc: 445 [place]: P: 62 SC: 136 QRS: 88 T: 65 INTERPRETIVE STATEMENTS: Normal sinus rhythm Nonspecific ST and T wave abnormality Abnormal ECG Compared to ECG 10/23/2022 12:40:29 ST (T wave) deviation now present Sinus bradycardia no longer present Electronically Signed On 12-14-22 16:42:33 CDT by Johnny Lomas
== END 2022-12-14 03:17 ==
LOC: ER 20:45
DX: J96.92 Respiratory failure, unspecified with hypercapnia (principal); J16.8 Pneumonia due to other specified infectious organisms; J44.9 Chronic obstructive pulmonary disease, unspecified; R41.82 Altered mental status, unspecified; I50.9 Heart failure, unspecified; I10 Essential (primary) hypertension; Z85.46 Personal history of malignant neoplasm of prostate; Z20.822 Contact with and (suspected) exposure to COVID-19
CPT/HCPCS: 93005; 87040 ×2; 87088; 85025; 81001; 87086; 36415; 82140; 83735; 85610; 83605; 85730; 84484; 80053; 83880; 87635; 87804 ×2; 70450; 71260; 74177; 71045; 94640; 82805; 99285; 94660; Q9967; J1940; J2543; J7613; J7644; J2930; J2405; J7040; J7030